=== PATIENT | male | born 1995 | race Caucasian/White ===

== ENCOUNTER 2017-12-26 15:28 | Emergency (ER) | payer BC ==
[~2017-12-26] VITALS: Ht 177.8 cm; Wt 86.2 kg
[2017-12-26] MEDS ORDERED: LAMO200T2 PO (15:37)
--- NOTE | 2017-12-26 16:02 | NUR ---
DR SHERIFF AT THE BEDSIDE FOR SUTURE REMOVAL, PT TOLORATED WELL.
--- NOTE | 2017-12-26 16:08 | NUR ---
DC AND FOLLOW UP INSTRUCTIONS GIVEN AND EXPLAINED TO PATIENT WHO STATES HE UNDERSTANDS ALL INSTRUCTIONS
== END 2017-12-26 16:09 | disposition home or self-care (01) ==
LOC: ER 15:29
DX: S01.111D Laceration without foreign body of right eyelid and periocular area, subsequent encounter (principal); Z48.02 Encounter for removal of sutures; X58.XXXD Exposure to other specified factors, subsequent encounter
CPT/HCPCS: 99281; A4663

== ENCOUNTER 2018-01-03 20:04 | Emergency (ER) | payer BC ==
[~2018-01-03] VITALS: Ht 177.8 cm; Wt 86.2 kg
[~2018-01-03 20:04] MED LIST: LAMO200T2 PO
--- NOTE | 2018-01-03 20:19 | NUR ---
EKG was delayed due to EKG machine malfunction.
[2018-01-03] MEDS ORDERED: ALPR2TAB2 PO (20:21)
[2018-01-03] MEDS ORDERED: OXYC30TA2 PO (20:21)
--- NOTE | 2018-01-03 20:26 | NUR ---
Dr. Garcia at bedside for MSE.
[2018-01-03] MEDS ORDERED: HYDROCODONE/APAP 10-325 MG TABLET PO ONE (20:45)
[2018-01-03] MEDS ORDERED: HYDROCODONE/APAP 10-325 MG TABLET ONE (20:47)
[2018-01-03 20:58] LABS: BASOPHILS # (AUTO) 0.1 K/uL (0.0-8.0); BASOPHILS % (AUTO) 0.7 % (0.0-2.0); EOSINOPHILS # (AUTO) 0.1 K/uL (0.0-0.7); EOSINOPHILS % (AUTO) 0.8 % (0.0-7.0); HEMATOCRIT 41.7 % (36.7-47.1); HEMOGLOBIN 13.9 g/dL (12.5-16.3); LYMPHOCYTES # (AUTO) 2.7 K/uL (20.0-40.0); LYMPHOCYTES % (AUTO) 27.5 % (20.5-51.5); MEAN CORPUSCULAR HEMOGLOBIN 30.6 uug (23.8-33.4); MEAN CORPUSCULAR HGB CONC 33 g/dL (32.5-36.3); MEAN CORPUSCULAR VOLUME 91.6 fL (73.0-96.2); MONOCYTES # (AUTO) 0.8 K/uL (2.0-10.0); MONOCYTES % (AUTO) 8.3 % (0.0-11.0); NEUTROPHILS % (AUTO) 62.7 % (38.5-71.5); PLATELET COUNT (AUTO) 280 K/uL (152-348); RED BLOOD CELL COUNT(AUTO) 4.55 MIL/uL (4.06-5.63); WHITE BLOOD COUNT (AUTO) 9.6 K/uL (3.6-10.2)
[2018-01-03 21:09] LABS: BILIRUBIN,DIRECT 0.1 mg/dL (0.0-0.2); BILIRUBIN,TOTAL 0.4 mg/dL (0.2-1.0); POTASSIUM 3.9 mmol/L (3.5-5.1); TOTAL PROTEIN, SERUM 6.9 g/dL (6.4-8.2)
[2018-01-03] MEDS ORDERED: OXYCODONE/APAP 5-325 MG TABLET PO ONE (21:45)
[2018-01-03] MEDS ORDERED: OXYCODONE/APAP 5-325 MG TABLET ONE (21:49)
[2018-01-03] MEDS ORDERED: ALPRAZOLAM 0.5 MG TABLET ONE (21:55)
--- NOTE | 2018-01-03 21:59 | NUR ---
Patient discharged to home in stable conditon. Written and verbal after care instructions given. Patient verbalizes understanding of instructions. Pt ambulated out of ER with steady gait, no acute signs of distress, VSS, all belongings taken.
[2018-01-03] MEDS ORDERED: ALPRAZOLAM 0.25 MG TABLET PO ONE (22:00)
[2018-01-03 22:01] VITALS: BP 117/74
== END 2018-01-03 22:01 | disposition home or self-care (01) ==
LOC: ER 20:05
DX: G89.29 Other chronic pain (principal); M54.9 Dorsalgia, unspecified; R07.89 Other chest pain
CPT/HCPCS: 36415; 70030-TC; 71045; 85025; 85730; 93005; A4663